=== PATIENT | female | born 1975 | race Caucasian/White ===

== ENCOUNTER → 2016-11-05 | Outpatient (CLI) | payer OTHER ==
--- NOTE | 2016-11-05 09:55 | DX ---
Biphasic Upper GI Series Clinical History: 41-year-old female who had a Tani fundoplication 6 weeks ago for chronic gastroes ophageal reflux and a Haywood's esophagus, however the patient complains of persistent difficulty in ingesting food (solids more so than liquids), and indicates that she is unable to burp. She also has a prior remote history of leukemia and IBS. Technique: While the patient was standing, effervescent crystals and thick barium were ingested. Fluo roscopy of the hypopharynx and of the cervical and thoracic esophagus was performed. Subsequently, th e patient was placed in supine, oblique, lateral decubitus, and prone positions and fluoroscopy of th e stomach and of the proximal small bowel was performed. A drinking LANE esophagram was performed with a Valsalva maneuver, and the patient was also imaged supine. Finally, she was stood upright again an d a 13 mm barium tablet was ingested with water. Cine clips detailing esophageal peristalsis were rec orded on PACS. Fluoroscopy Time: 3.5 minutes (exposure dose of 64.90 mGy). Comparison Study: Preoperative upper GI series, dated August 31, 2016. Findings: There is appropriate oropharyngeal propulsion of the bolus into the hypopharynx with a norm al, symmetrical appearance to the vallecula and piriform sinuses. The posterior cervical esophagus is normal. There is no evidence of aspiration. There are some degenerative features associated with the cervical spine with small ventral traction osteophytes which do not significantly impinge on the pos terior cervical esophagus. There was no upper esophageal sphincter spasm or Zenker's diverticulum. Th ere is antegrade esophageal motility although the esophageal column had difficulty progressing initia lly past the GE junction where there is a mild angulation at the fundoplication wrap. When the patien t was supine, there was poor esophageal peristalsis above the GE junction with both antegrade and ret rograde motility noted. Once contrast had made its way into the stomach, reflux was not observed. The stomach is normal in size, shape, and position. There is no focal ulceration, and there is prompt eg ress of barium into normal-appearing duodenal bulb and C-sweep. Postcholecystectomy clips are noted i n the right upper quadrant of the abdomen. At the conclusion of the study, the patient ingested a 13 mm barium tablet which was transiently delayed at the GE junction, and then advanced into the stomach . I reviewed the findings with the patient at the time of exam performance. Impression: 1. Status post fundoplication with mild angular contour at the gastroesophageal junction, delaying es ophageal emptying and seen in association with some retrograde esophageal peristalsis prompting some throat clearing. 2. Transient delay of a barium tablet at the GE junction.
== END ==
LOC: FIMAGING 08:24
PROVIDERS: ATTEND Surgery
DX: K30 Functional dyspepsia (principal); Z98.890 Other specified postprocedural states

== ENCOUNTER → 2016-12-15 | Outpatient (CLI) | payer OTHER | LOC: FIMAGING 15:53 | DX: Z12.31 Encounter for screening mammogram for malignant neoplasm of breast (principal) | CPT/HCPCS: G0202 ==

== ENCOUNTER 2017-02-12 15:16 | Emergency (ER) | payer OTHER ==
[2017-02-12 15:31] VITALS: RESP 18
--- NOTE | 2017-02-12 16:24 | EDPHY ---
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 No direct trauma or fall. She was given a prescription for Flexeril by a provider at that time and referred to employee health. She currently has reproducible back pain after being at work today. She has intermittent left lower extremity radiculopathy with no foot drop. No incontinence. No retention. No saddle anesthesia. No fever no chills. No flu-like symptoms. PRIMARY CARE PROVIDER: worker's compensation REVIEW OF SYSTEMS: A ten point review of systems was performed and is negative with the exception of the items mentioned in the HPI PAST MEDICAL & SURGICAL HISTORY: No prior history of chronic back pain SOCIAL HISTORY: works as a circulating nurse PHYSICAL EXAM (Prior to examination, patient consented to physical exam, hands were washed and my usual and customary physical exam procedures followed) 1) GENERAL: Well-developed, well-nourished, alert and oriented. Appears nontoxic . 2) HEAD: Normocephalic, atraumatic 3) HEENT: Pupils equal, round, reactive to light bilaterally. Sclera anicteric. 4) NECK: Full range of motion, no meningeal signs. 5) LUNGS: Clear auscultation bilaterally, no wheezes, no rhonchi, no retractions. 6) HEART: Regular rate and rhythm, no murmur, no heave, no gallop. 7) ABDOMEN: No guarding, no rebound, no focal tenderness, 8) MUSCULOSKELETAL: Moving all extremities, no focal areas of tenderness, no obvious trauma. No peripheral edema or discoloration. 9) BACK: tender to palpation left paraspinous lumbar muscle. No CVA tenderness, no midline vertebral tenderness, no fluctuance, no step-off, no obvious trauma, no visual or palpable abnormality. Patella, Achilles reflexes intact to bilateral strength 5/5 10) SKIN: No rash, no petechiae. 11) NEURO: Awake, alert, and oriented to person, place and time. Answers questions appropriately. There were no obvious focal neurologic abnormalities. No cerebellar dysfunction. . DIFFERENTIAL DIAGNOSIS: In no particular order, including but not limited to, fracture, sprain/strain, cauda equina, spinal infectious etiology. MEDICAL DECISION MAKING Lower index of suspicion for cauda equina, epidural abscess, epidural hematoma, lumbar myositis, diskitis, as the patient is neurologically intact in the lower extremities, has patella and Achilles reflexes intact and equal bilaterally, has no neurologic deficits, no incontinence, no retention, no midline pain, no fluctuance, afebrile, no flulike symptoms. Pain may be secondary to muscular strain, may be secondary to discogenic etiology. At this point I do not identify definitive indication for emergent MRI, however patient may necessitate this on an outpatient basis. Recommend she follow up with [facility]. She will be given a prescription for [place] for breakthrough pain. Patient given acute back pain precautions. Patient verbalizes understanding of discharge instructions. I believe them be competent decision-makers. All questions and concerns have been addressed by me. Ample opportunity for questions have been provided . The patient understands that this diagnosis is provisional and can never be 100% accurate. Usual and customary warnings were given concerning the clinical impression and all the patient's questions were answered. The patient was instructed to return to the emergency department should her symptoms worsen or return, or develop any new symptoms, otherwise to followup as directed in discharge instructions. - Personal History LMP (Females 10-55): 15-21 Days Ago Current Tetanus/Diphtheria Vaccine: Yes - Medical/Surgical History Hx Asthma: No Hx Chronic Respiratory Disease: No Hx Diabetes: No Hx Cardiac Disease: No Hx Renal Disease: No Hx Cirrhosis: No Hx Alcoholism: No Hx HIV/AIDS: No Hx Splenectomy or Spleen Trauma: No Other PMH: leukemia, R acl repair, l ankle rapair, lap ambrosio, cornelia procedure for GERD - Social History Smoking Status: Never smoked Constitutional: Initial Vital Signs Temperature (C) 36.8 C 02/12/17 15:28 Heart Rate 84 02/12/17 15:28 Respiratory Rate 18 02/12/17 15:28 Blood Pressure 134/80 H 02/12/17 15:28 O2 Sat (%) 97 02/12/17 15:28 O2 Delivery Mode Room Air Allergies/Adverse Reactions: No Known Allergies Allergy (Verified 02/12/17 15:28) Home Medications: Medication Instructions Recorded Hydrocodone/APAP 5/325 [[place] 1 tab PO Q6 PRN #10 tab 02/12/17 5/325 (RX)] Robaxin 500 mg (*) 02/12/17 Departure - Departure Disposition: Home, Routine, Self-Care Clinical Impression: Acute low back pain Qualifiers: Back pain laterality: left Sciatica presence: with sciatica Sciatica laterality : sciatica of left side Qualified Code(s): M54.42 - Lumbago with sciatica, left side Condition: Good Instructions: Acute Low Back Pain (ED) Additional Instructions: Seek medical attention if you develop new or worsening pain, if you develop bladder or bowel dysfunction, numbness around your perineum, foot drop, or any other symptoms that concern you. Referrals: [facility],. [Clinic] - 02/15/17 Prescriptions: Hydrocodone/APAP 5/325 [[place] 5/325 (RX)] 1 tab PO Q6 PRN #10 tab PRN Reason: Pain, Severe
[2017-02-12 16:43] VITALS: BP 135/67; PULSE 82; TEMP 98.6; O2SAT 95
== END 2017-02-12 16:40 | disposition home or self-care (01) ==
DX: M54.42 Lumbago with sciatica, left side (principal)

== ENCOUNTER → 2017-04-21 | Outpatient (CLI) | payer OTHER | LOC: FIMAGING 08:32 | PROVIDERS: ATTEND Surgery | DX: K21.0 Gastro-esophageal reflux disease with esophagitis (principal); K44.9 Diaphragmatic hernia without obstruction or gangrene ==

== ENCOUNTER 2017-07-07 07:06 | Day surgery (SDC) | payer OTHER ==
[2017-07-07] MEDS ORDERED: LR 1,000 ML IV ONE (07:30)
[2017-07-07] MEDS ORDERED: MIDAZOLAM 2 MG/2 ML VIAL ONE (08:20)
--- NOTE | 2017-07-07 08:23 | PDGENHP ---
History & Physical Chief Complaint: dysphagia History of Present Illness: 42 year old female presents for evaluation of dysphagia. S/p fundoplication. 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 PMhx : barretts, fundoplication Relevant Physical Exam: HEENT: anicteric. Cv: RRR +s1s2. Lungs:CTAB. Abd: soft, nt, + bs. No g/r Cardiorespiratory Assessment: ASA 2
[2017-07-07] MEDS ORDERED: INDOMETHACIN 50 MG SUPP PR PRN (08:29)
[2017-07-07] MEDS ORDERED: NS 500 ML IV SCH (08:30)
[2017-07-07] MEDS ORDERED: PROPOFOL 200 MG/20 ML VIAL ONE (08:33)
--- NOTE | 2017-07-07 08:46 | PDANEPAE ---
ANE Past Medical History - Cardiovascular History Hx Hypertension: No Hx Arrhythmias: No Hx Chest Pain: No Hx Coronary Artery / Peripheral Vascular Disease: No Hx CHF / Valvular Disease: No Hx Palpitations: No - Pulmonary History Hx COPD: No Hx Asthma/Reactive Airway Disease: No Hx Recent Upper Respiratory Infection: No Hx Oxygen in Use at Home: No Hx Sleep Apnea: No Sleep Apnea Screening Result - Last Documented: Negative Pulmonary History Comment: Pneumonia Sep post-op Tani. - Neurologic History Hx Cerebrovascular Accident: No Hx Seizures: No Hx Dementia: No - Endocrine History Hx Diabetes: No - Renal History Hx Renal Disorders: No - Liver History Hx Hepatic Disorders: No - Neurological & Psychiatric Hx Hx Neurological and Psychiatric Disorders: Yes Neurological / Psychiatric History Comment: ANXIETY - uses generic Adderal. DEPRESSION - Cancer History Hx Cancer: Yes Cancer History Comment: LEUKEMIA 1988 CHEMO X3 YRS - Congenital Disorder History Hx Congenital Disorders: No - GI History Hx Gastrointestinal Disorders: No Gastrointestinal History Comment: Epigastric midsternal pain after eating;. CONSTIPATION. DIARRHEA,IBS - Other Health History Other Health History: Skin: Lipomas: Mid sternal,Upper R quadrant that are painful. - Chronic Pain History Chronic Pain: Yes (ABD PAIN) - Surgical History Prior Surgeries: Lap Tani Fundoplication . LAP ARMANDO. RIGHT ACL REPAIR. LEFT ANKLE FX REPAIR ANE Review of Systems Review of Systems: - Exercise capacity METS (RN): 4 METS ANE Patient History - Allergies Allergies/Adverse Reactions: No Known Allergies Allergy (Verified 06/18/17 16:24) - Home Medications Home Medications: Robaxin 500 mg (*) 02/12/17 [Last Taken Unknown] - NPO status NPO Since - Liquids (Date): 07/06/17 NPO Since - Liquids (Time): 22:00 NPO Since - Solids (Date): 07/06/17 NPO Since - Solids (Time): 19:00 - Smoking Hx Smoking Status: Never smoked - Family Anes Hx Family Hx Anesthesia Complications: NONE ANE Labs/Vital Signs - Vital Signs Blood Pressure: 119/71 Heart Rate: 91 Respiratory Rate: 16 O2 Sat (%): 96 Height: 172.72 cm Weight: 72.575 kg ANE Physical Exam - Airway Neck exam: FROM Mallampati Score: Class 1 Mouth exam: normal dental/mouth exam - Pulmonary Pulmonary: no respiratory distress, no rales or rhonchi, clear to auscultation - Cardiovascular Cardiovascular: regular rate and rhythym, no murmur, rub, or gallop - ASA Status ASA Status: II ANE Anesthesia Plan Anesthesia Plan: GA with mask
[2017-07-07] MEDS ORDERED: ONDANSETRON 4 MG/2 ML VIAL IVP PRN (08:47)
[2017-07-07] MEDS ORDERED: ALBUTEROL 3 ML DEYVIAL IH PRN (08:47)
[2017-07-07] MEDS ORDERED: MEPERIDINE 25 MG/ML SYR IVP PRN (08:47)
[2017-07-07] MEDS ORDERED: fentaNYL 100 MCG/2 ML INJ IVP PRN (08:47)
[2017-07-07] MEDS ORDERED: NALOXONE HCL 0.4 MG/ML INJ IVP PRN (08:47)
[2017-07-07] MEDS ORDERED: DEXAMETHASONE 4 MG/ML VIAL IVP PRN (08:47)
[2017-07-07] MEDS ORDERED: METOCLOPRAMIDE 10 MG/2 ML VIAL IVP PRN (08:47)
[2017-07-07] MEDS ORDERED: PROMETHAZINE HCL 25 MG/ML INJ IVP PRN (08:47)
[2017-07-07] MEDS ORDERED: LR 500 ML IV PRN (08:47)
--- NOTE | 2017-07-07 09:02 | POSTANESTH ---
Post Anesthetic Evaluation Cardiovascular Status: Normal, Stable Respiratory Status: Normal, Stable Level of Consciousness/Mental Status: Can Participate in Eval Pain Control: Adequate, Prn Tx Ordered Nausea/Vomiting Control: Adequate, Prn Tx Ordered Complications Possibly Related to Anesthesia: None Noted
--- NOTE | 2017-07-07 09:04 | GIREPORT ---
[facility] Surgical Services - Endoscopy Department Patient Name: Selena May Procedure Date: 07/07/2017 8:28 AM Patient Type: Outpatient Attending / ER Physician: Chuck Mitchell MD Procedure: Upper GI endoscopy Indications: Dysphagia Patient Profile: 42 year old female with a recent fundoplication presents for evaluation of dysphagia. Providers: Chuck Mitchell MD Medicines: Monitored Anesthesia Care Complications: No immediate complications. Estimated blood loss: None. Description of Procedure: After obtaining informed consent, the endoscope was passed under direct vision. Throughout the procedure, the patient's blood pressure, pulse, and oxygen saturations were monitored continuous ly. The Endoscope was introduced through the mouth, and advanced to the second part of duodenum. The upper GI endoscopy was accomplished without difficulty. The patient tolerated the procedure well . Findings: The Z-line was irregular. Biopsies were taken with a cold forceps for histology. One mild extrinsic stenosis was found at the gastroesophageal junction. And was traversed. A TTS dilator was passed through the scope. Dilation with a 15-16.5-18 mm x 5.5 cm CRE balloon and an 18-19-20 mm x 5.5 cm CRE balloon dilator was performed to 20 mm. Biopsies were taken with a cold forceps in the middle third of the esophagus for histology. Biop sies were taken with a cold forceps for histology for oesinophilic esophagitis. Evidence of a Tani fundoplication was found in the cardia. The wrap appeared intact. Patchy mildly erythematous mucosa was found in the gastric body and in the gastric antrum. Biops ies were taken with a cold forceps for histology. The examined duodenum was normal. Estimated Blood Loss: Estimated blood loss was minimal. Post Op Diagnosis: - Z-line irregular. Biopsied. - Extrinsic narrowing of the esophagus. Dilated. - A Tani fundoplication was found. The wrap appears intact. - Erythematous mucosa in the gastric body and antrum. Biopsied. - Normal examined duodenum. - Biopsies were taken with a cold forceps for histology in the middle third of the esophagus. - Etiology? Suspect symptoms secondary to fundoplication. S/p dilation. Would also start PPI to see if acid component to her symptoms. Recommendation: - Discharge patient to home (with escort). - Advance diet as tolerated. - Follow an antireflux regimen. - Use a proton pump inhibitor PO daily. - Return to GI office in 6 months. - Await pathology results. Attending Participation: I personally performed the entire procedure. Chuck Mitchell MD Chuck Mitchell MD 07/07/2017 9:03:57 AM Number of Addenda: 0 Note Initiated On: 07/07/2017 8:28 AM [email or web address]
[2017-07-07 09:13] VITALS: PULSE 72
[2017-07-07 09:47] VITALS: RESP 18
[2017-07-07 10:11] VITALS: BP 109/78; TEMP 98.1; O2SAT 94
== END 2017-07-07 10:30 | disposition home or self-care (01) ==
LOC: FSGY 07:06
PROVIDERS: ATTEND Internal Medicine Gastroenterology
PROC: 0DB68ZX Excision of Stomach, Via Natural or Artificial Opening Endoscopic, Diagnostic (ICD-10-PCS; principal; 2017-07-07 09:00)
PROC: 0DB48ZX Excision of Esophagogastric Junction, Via Natural or Artificial Opening Endoscopic, Diagnostic (ICD-10-PCS; principal; 2017-07-07 09:00)
PROC: 0DB28ZX Excision of Middle Esophagus, Via Natural or Artificial Opening Endoscopic, Diagnostic (ICD-10-PCS; principal; 2017-07-07 09:00)
PROC: 0D748ZZ Dilation of Esophagogastric Junction, Via Natural or Artificial Opening Endoscopic (ICD-10-PCS; principal; 2017-07-07 09:00)
DX: R13.10 Dysphagia, unspecified (principal); K22.2 Esophageal obstruction; Z98.890 Other specified postprocedural states; Z87.19 Personal history of other diseases of the digestive system; Z85.6 Personal history of leukemia
CPT/HCPCS: 43239; 43249; C1726; J2250; J2704

== ENCOUNTER → 2017-12-29 | Outpatient (CLI) | payer OTHER | LOC: FLAB 12:46 | PROVIDERS: ATTEND Physician Assistant | DX: M54.12 Radiculopathy, cervical region (principal); M62.81 Muscle weakness (generalized) ==

== ENCOUNTER → 2018-01-20 | Outpatient (CLI) | payer OTHER | LOC: FIMAGING 15:35 | PROVIDERS: ATTEND Surgery | DX: Z12.31 Encounter for screening mammogram for malignant neoplasm of breast (principal) ==